=== PATIENT | male | born 1985 | race Caucasian/White ===

== ENCOUNTER 2023-06-05 05:39 | Inpatient (IN) | payer OTHER, SELFPAY ==
[2023-06-05] VITALS (24 sets, daily range): BP systolic 108–148; BP diastolic 61–78; PULSE 80–108; RESP 16–23; TEMP 36.6–39.2; O2SAT 92–99; BMI 27.9
--- NOTE | 2023-06-05 05:53 | ED.GENADULT ---
HPI - General Adult General Chief complaint: Skin/Abscess/Foreign Body Stated complaint: fever, possible infection Time Seen by Provider: 06/05/23 05:43 History of Present Illness HPI narrative: CC: Right Finger Redness/ Swelling pt. thinks he might have infection in right ring finger. denies injury. 37-year-old man presenting to the emergency department with complaint of right ring finger pain in particular. Started to have some pain after supper last night and has continued overnight. He has felt alternating hot with chills and has been treating with ibuprofen acetaminophen. Measured a fever to 101. Underlying history of eczema that the maybe just has dry skin was irritated. Otherwise does not recall any trauma to the hand or finger. Did end up with some dry heaves overnight as well. Related Data Home Medications Medication Instructions Recorded Confirmed No Known Home Medications 06/05/23 06/05/23 Allergies Allergy/AdvReac Type Severity Reaction Status Date / Time amoxicillin Allergy Severe Throat Verified 06/05/23 05:52 Swelling Review of Systems Status of ROS: Reports: 6 or more systems reviewed and unremarkable except as noted in History and below [facility] Medical History (Updated 06/05/23 @ 08:48 by Juan Jose Otero MD) Migraines ?G43.909 - Migraine, unspecified, not intractable, without status migrainosus (ICD-10) Surgical History S/P vasectomy ?Z98.52 - Vasectomy status (ICD-10) History of wisdom tooth extraction ?K08.409 - Partial loss of teeth, unspecified cause, unspecified class (ICD-10) Family History Maternal Grandfather TIA (transient ischemic attack) Maternal Grandmother Stroke Paternal Grandmother Scarlet fever Paternal Grandfather Cancer Social History Narrative: 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 . 4 children. Exercises formally, 4 to 5 days a week. Non-smoker. Alcohol 1/2 servings per week. No illicit drug use. Smoking Status: Never smoker Second hand tobacco smoke exposure: No How often do you have a drink containing alcohol: never How often do you have six or more drinks on one occasion: Never AUDIT-C Alcohol total score: 0 Non-prescribed substance use: denies use Exam Narrative: Exam Narrative: Pleasant. Seems uncomfortable. Favoring right hand and 4th finger of that hand held slightly flexed. Skin is warm and dry. Breathing easily. Lungs appear to be clear. Heart in a regular rate and rhythm. Examination of hand in question does show generally Ruff dry skin. There is blotchy erythema over the dorsum of the hand spreading into the 3rd finger in particular but main finger of involvement clearly is the right 4th finger which is tense and warm and mildly erythematous. I do not see any area where there would be discrete abscess or injury though there may be a nidus at the proximal radial side palmar surface of the finger. Faint erythema does extend over the dorsum of the hand to the wrist. Looks to have a little lymphangitic spread beyond that as well. Generally sore to palpation over the 4th finger; none of the other fingers are particularly tender. He allows for passive flexion of the finger though against resistance or with active flexion certainly causes much more pain. Const: Vital Signs, click to edit/add: Vital Signs - 24 hr 06/05/23 05:49 Temperature 98.2 F Pulse Rate [Right Pulse Oximeter] 85 Respiratory Rate 18 Blood Pressure [Ri ght Upper Arm] 130/70 Pulse Oximetry 99 Oxygen Delivery Me thod Room Air Documenting provider has reviewed patient's vital signs: yes Course Vital Signs Vital signs: Initial Vital Signs Temperature 98.2 F 06/05/23 05:49 Temperature Source Temporal Artery Scan 06/05/23 05:49 Pulse Rate 85 06/05/23 05:49 Respiratory Rate 18 06/05/23 05:49 Blood Pressure 130/70 06/05/23 05:49 Blood Pressure Mean 90 06/05/23 05:49 Blood Pressure Position Sitting 06/05/23 05:49 Pulse Oximetry 99 06/05/23 05:49 Oxygen Delivery Method Room Air 06/05/23 05:49 Vital Signs Temperature 98.2 F 06/05/23 05:49 Pulse Rate 85 06/05/23 05:49 Respiratory Rate 18 06/05/23 05:49 Blood Pressure 130/70 06/05/23 05:49 Pulse Oximetry 99 06/05/23 05:49 Oxygen Delivery Method Room Air 06/05/23 05:49 Temperature 98.2 F 06/05/23 05:49 Pulse Rate 85 06/05/23 05:49 Respiratory Rate 18 06/05/23 05:49 Blood Pressure 130/70 06/05/23 05:49 Pulse Oximetry 99 06/05/23 05:49 Oxygen Delivery Method Room Air 06/05/23 05:49 Medications Administered Medications: Discontinued Medications Generic Name Dose Route Start Last Admin Trade Name Radha PRN Reason Stop Dose Admin Sodium Chloride 1,000 mls @ 1,000 mls/hr 06/05/23 06:18 06/05/23 07:16 0.9 % Sodium Chloride 1000 Ml IV 06/05/23 07:17 Infused .Q1H ONE Infusion Ceftriaxone Sodium 1 gm/ 100 mls @ 200 mls/hr 06/05/23 06:18 06/05/23 08:08 Sodium Chloride IVPB 06/05/23 06:19 Infused ONCE ONE Infusion Sodium Chloride 1,000 mls @ 1,000 mls/hr 06/05/23 06:20 06/05/23 06:33 0.9 % Sodium Chloride 1000 Ml IV 06/05/23 07:19 Not Given .Q1H ONE Ondansetron HCl 4 mg 06/05/23 06:18 06/05/23 06:32 Ondansetron 2 Mg/Ml Inj IVP 06/05/23 06:19 4 mg ONCE ONE Administration Medical Decision Making MDM Narrative Medical decision making narrative: Skin with less calor and induration than I might expect for basic cellulitis. This seems less cellulitis and more concerning for potential tenosynovitis. Without trauma, I do not think that imaging will be helpful. I suppose could be some sort of arthritis but this seems rather atypical. I would obtain baseline labs. IV fluids and initiate IV antibiotics. Initiating Rocephin after obtaining blood cultures. IV fluids. Zofran. Did have another episode of vomiting prior to getting this Zofran. White count returns at 19,000. CRP though of only 2.9. I was called back to bedside as he is feeling increasing tingling in his fingertip, more tender. Still well-perfused and generally tense and erythematous. Did contact Orthopedics discussed my concerns. Anticipating orthopedic consult and likely surgical intervention at this time. I would consider Mr. Stacy a good candidate for trial of anesthesia. Discussed admission also with hospitalist Lab Data Lab results reviewed: Yes I reviewed the patient's lab results Labs: Lab Results 06/05/23 06/05/23 Range/Units 06:19 06:26 WBC 18.99 H (4.50-11.00) K/uL RBC 5.67 (4.30-5.90) m/uL Hgb 17.0 (13.5-17.5) gm/dL Hct 50.3 (37.0-53.0) % MCV 89 (80-100) fL MCH 30 (26-34) pg MCHC 34 (32-36) gm/dL RDW Coeff of Tena 11.7 (11.5-15.5) % Plt Count 335 (140-440) K/uL Neut % (Auto) 86.1 H (42.0-72.0) % Lymph % (Auto) 4.3 L (20-44) % [place] % (Auto) 9.0 (0.0-11.0) % Eos % (Auto) 0.1 (0.0-7.0) % Baso % (Auto) 0.1 (0.0-3.0) % Neut # (Auto) 16.40 H (1.7-7.0) K/uL Lymph # (Auto) 0.80 L (0.90-2.90) K/uL [place] # (Auto) 1.70 H (0.00-0.90) K/UL Eos # (Auto) 0.00 (0.00-0.50) K/uL Baso # (Auto) 0.00 (0.00-0.30) K/uL Abs Immat Gran (auto) 0.10 (0.00-0.30) K/uL Imm/Tot Granulo (auto) 0.4 % Sodium 138 (135-149) mmol/L Potassium 4.3 (3.6-5.1) mmol/L Chloride 103 (96-114) mmol/L Carbon Dioxide 22 (20-32) mmol/L Anion Gap 13 (7-15) mEq/L BUN 18 (5-24) mg/dL Creatinine 1.2 (0.5-1.5) mg/dL Estimated Creat Clear 91.51 Estimated GFR 81 ml/min Glucose 129 H (60-115) mg/dL Lactate 1.1 (0.5-1.9) mmol/L Calcium 10.0 (8.4-10.6) mg/dL C-Reactive Protein 2.9 H (0.5-1.0) mg/dL Discharge Plan Discharge Clinical Impression: Eczema, Tenosynovitis Patient Disposition: Admitted As Observation
[2023-06-05] MEDS: ONDANSETRON 2 MG/ML inj 4 MG IVP ×3 (06:32→22:26)
[2023-06-05] MEDS: 0.9 % SODIUM CHLORIDE 1000 ml 1,000 ML IV (06:32)
[2023-06-05 06:38] LABS: Lactate* 1.1 mmol/L (0.5-1.9)
[2023-06-05 07:08] LABS: Basophils Percent Auto 0.1 % (0.0-3.0); Eosinophils Percent Auto 0.1 % (0.0-7.0); Hematocrit 50.3 % (37.0-53.0); Immature Granulocytes Pct Auto 0.4 %; Lymphocytes Percent Auto 4.3 % (20-44); Mean Corpuscular HGB Conc 34 gm/dL (32-36); Mean Corpuscular Hemoglobin 30 pg (26-34); Mean Corpuscular Volume 89 fL (80-100); Neutrophils Percent Auto 86.1 % (42.0-72.0); Platelet Count* 335 K/uL (140-440); RDW Coefficient of Variation % 11.7 % (11.5-15.5); Red Blood Count 5.67 m/uL (4.30-5.90); White Blood Count* 18.99 K/uL (4.50-11.00)
[2023-06-05] MEDS: cefTRIAXone 1 GM in 0.9 % SODIUM CHLORIDE Mini-bag 100 ML IVPB ×2 (07:14→12:48)
[2023-06-05 07:23] LABS: Slide Review Reflex No
[2023-06-05 07:24] LABS: Chloride* 103 mmol/L (96-114); Potassium* 4.3 mmol/L (3.6-5.1); Sodium* 138 mmol/L (135-149)
[2023-06-05 07:27] LABS: Creatinine* 1.2 mg/dL (0.5-1.5); Est. Creatinine Clearance* 91.51; Estimated Glomerular Filt Rate 81 ml/min
[2023-06-05 07:28] LABS: Anion Gap 13 mEq/L (7-15); Blood Urea Nitrogen* 18 mg/dL (5-24); Carbon Dioxide* 22 mmol/L (20-32); Glucose* 129 mg/dL (60-115)
[2023-06-05 07:31] LABS: C Reactive Protein* 2.9 mg/dL (0.5-1.0)
--- NOTE | 2023-06-05 09:10 | ED.NURSE ---
waiting for OR crew. is starting to have chills.
[2023-06-05] MEDS: PROMETHAZINE 25 MG/ML INJ 12.5 MG IVP (09:44)
[2023-06-05] MEDS: HYDROmorphone 0.5 mg/0.5 ml inj IVP ×3 (09:44→23:48)
[2023-06-05] MEDS: LACTATED RINGERS 1000 ML 1,000 ML 125 ML IV (10:17)
[2023-06-05] MEDS: BUPIVACAINE 0.5% 30 ML INJECTION (10:35)
[2023-06-05] MEDS: NEOMYCIN/BACITRACIN/POLYMYXIN B 1 APPLIC TOPICAL (11:00)
--- NOTE | 2023-06-05 11:14 | PM.ORCN ---
History of Present Illness HPI Date Seen: 06/05/23 Chief complaint: fever, possible infection Narrative: Gabriel is a pleasant 37-year-old male. He presented to the emergency department this morning on 06/05/2023. He reports his right ring finger has become swollen, red, painful, and difficulty with use. This is developed in the last 24 hours. Reportedly he has eczema which typically causes him to scratch even his palmar surface of his fingers and hand. He thinks he may have created a small cut. He put a Band-Aid on this. Overnight, the Band-Aid was excessively tight. He had to take it off. This prompted the visit to the ED as redness also progressed. He became febrile overnight with occasional shaking and chills. 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 . 4 children. Exercises formally, 4 to 5 days a week. Non-smoker. Alcohol 1/2 servings per week. No illicit drug use. Smoking Status: Never smoker Second hand tobacco smoke exposure: No How often do you have a drink containing alcohol: never How often do you have six or more drinks on one occasion: Never AUDIT-C Alcohol total score: 0 Non-prescribed substance use: denies use Meds Home Medications and Allergies Home Medications Medication Instructions Recorded Confirmed Type No Known Home Medications 06/05/23 06/05/23 History Allergies Allergy/AdvReac Type Severity Reaction Status Date / Time amoxicillin Allergy Severe Throat Verified 06/05/23 05:52 Swelling Ortho Exam Narrative Exam Narrative: Alert and oriented x3. No acute distress. Nonlabored breathing. His is with him today. Exam the right hand shows positive [place] signs including fusiform swelling of the right ring finger, rested flexed posture, pain with passive stretch, and erythema throughout the digit. The digit tip is pink, warm, brisk cap refill. Sensation intact to light touch in the radial and ulnar aspects distally. Mild erythema seen along some swelling over the dorsum of the hand as well. No significant erythema into the palm beyond the MCP joint region. Const Vital Signs, click to edit/add: Vital Signs - 24 hr 06/05/23 05:49 06/05/23 09:45 Temperature 98.2 F 99.0 F Pulse Rate [Right Pulse Oximeter] 85 Respiratory Rate 18 Blood Pressure [Right Upper Arm] 130/70 Pulse Oximetry 99 Oxygen Delivery Method Room Air Results Labs Labs: Laboratory Results - last 48 hr 06/05/23 06/05/23 06:19 06:26 WBC 18.99 H RBC 5.67 Hgb 17.0 Hct 50.3 MCV 89 MCH 30 MCHC 34 RDW Coeff of Tena 11.7 Plt Count 335 Neut % (Auto) 86.1 H Lymph % (Auto) 4.3 L [place] % (Auto) 9.0 Eos % (Auto) 0.1 Baso % (Auto) 0.1 Neut # (Auto) 16.40 H Lymph # (Auto) 0.80 L [place] # (Auto) 1.70 H Eos # (Auto) 0.00 Baso # (Auto) 0.00 Abs Immat Gran (auto) 0.10 Imm/Tot Granulo (auto) 0.4 Sodium 138 Potassium 4.3 Chloride 103 Carbon Dioxide 22 Anion Gap 13 BUN 18 Creatinine 1.2 Estimated Creat Clear 91.51 Estimated GFR 81 Glucose 129 H Lactate 1.1 Calcium 10.0 C-Reactive Protein 2.9 H Assessment and Plan Assessment and plan (1) Suppurative tenosynovitis of flexor tendon of right hand: Status: Acute Plan Examination is suspicious of pyogenic flexor tenosynovitis of the right ring finger. As such, and given the fact that he is started to have some erythema develop over the dorsum of the hand along with his fevers and rigors, I do think surgery is indicated. This would be for right ring finger incision and drainage. Deep incision and drainages its at the flexor tendon sheath. We discussed the risks, benefits, and alternatives. A below questions were answered. He and his state understanding. Indeed he would like to proceed with surgery. His last food/drink intake was 7:00 p.m. last evening. Following the surgery, anticipate IV antibiotics until cultures return at which time he can hopefully be switched to oral antibiotics.
--- NOTE | 2023-06-05 11:19 | PM.ORPRC ---
Procedure Note Date of procedure: 06/05/23 Procedure: PREOPERATIVE DIAGNOSIS: 1. Right ring finger pyogenic flexor tenosynovitis POSTOPERATIVE DIAGNOSIS: 1. Right ring finger pyogenic flexor tenosynovitis PROCEDURE: 1. Right ring finger pyogenic flexor tenosynovitis open incision and drainage SURGEON: Bhupendra Birmingham MD. INSTRUMENT/CONTROL TECHNICIAN: Pau Tejeda PA-C - Of note, an infertility medical assistant was critical for this case to aid in patient positioning, tissue retraction, limb manipulation/positioning, and closure. ANESTHESIA: General endotracheal anesthetic plus median nerve block at the carpal tunnel with a 50:50 mixture of 1% lidocaine with epinephrine and 0.5% bupivacaine plain (10 mL total) IMPLANTS: None TOURNIQUET: 18 minutes at 250 torr COMPLICATIONS: None evident INDICATIONS: The patient is a pleasant 37-year-old male who has developed a right ring finger swelling, redness, pain, and dysfunction over last 24 hours. He related to scratching the volar aspect of the digit due to his eczema and creating a small wound. He noticed overnight at the redness and swelling worsened along with development of fevers and rigors. Nonoperative management has been tried but unsuccessful. Given the failure of nonoperative management, and how this affects daily life, surgery was recommended. DESCRIPTION OF PROCEDURE: Following a thorough discussion of risks, benefits, and alternatives consent was obtained and the operative extremity was marked. The patient was brought to the operating room and placed supine on the operating table. No antibiotics were administered as he had received IV ceftriaxone in the emergency department approximately 1.5-2 hours prior to the surgery. Proper time-out was performed identifying proper patient, site, and procedure. The operative extremity was prepped and draped in the appropriate sterile fashion using ChloraPrep. Median nerve block at the carpal tunnel was performed. The limb was exsanguinated and the tourniquet inflated. A longitudinal incision was made overlying the MCP joint of the right ring finger volarly. Sharp incision through skin and blunt dissection through subcutaneous tissue allowed identification of the A1 justin and the flexor tendon sheath. A thorough irrigation normal saline was performed. A 10 mL syringe was utilized with a small cap to direct the flow of the fluid into the flexor tendon sheath. Thorough irrigation through this site was performed. Cultures were obtained just prior to the beginning of irrigation, of note. We then made a transverse incision through the distal digital crease and again found the flexor tendon sheath. The sheath was irrigated from this direction as well. A [place] was utilized to ensure that we mobilize the tissue in the flexor tendon sheath and irrigation could be completed accordingly. At this stage, the tourniquet was deflated and hemostasis achieved. Closure was performed with [4-O nylon]. Soft dressings were applied, a volar splint was applied to allow the ring finger to rest, and the patient was awoken/transferred to the recovery room in stable condition. PLAN: 1. Encourage elevation of the operative extremity. 2. IV antibiotics until cultures return and a p.o. antibiotic can be chosen. 3. Ibuprofen, acetaminophen and/or Percocet/oxycodone as needed for pain. 4. Monitor the wound and evaluate if repeat incision and drainage is needed.
--- NOTE | 2023-06-05 11:23 | W.ANESCHARGE ---
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
[2023-06-05] MEDS: METOCLOPRAMIDE HCL 5 MG/ML INJ 10 MG IVP (11:28)
[2023-06-05] MEDS: LACTATED RINGERS 1000 ML 1,000 ML 75 ML IV ×2 (12:05→22:30)
[2023-06-05] MEDS: ACETAMINOPHEN 325 MG TABLET 650 MG PO (15:05)
--- NOTE | 2023-06-05 18:36 | PC.NURSE ---
Shift note: Pt arrived to med/surg unit at 1155 this morning following surgery completed to fourth digit of R hand. Pt has received IV ABX per orders. He was noted to be febrile with temp as high as 102.6 this afternoon. PRN Tylenol administered with temp of 98.3 noted upon followup. Surgical incision to R hand noted to be covered with dressing and secured with JOVANNA wrap. Pt has been denying pain since surgery. He states he does have numbness/tingling to R hand though nerve block was administered for surgical procedure. CMS to R hand noted to be intact. SCDs worn to bilateral lower extremities. Marisa has been present at bedside most of shift. Pt noted to have mild nausea following surgery though this was effectively treated with PRN IV Zofran. Pt has voided 600 mL light virgilio urine since surgery. He ambulated to bathroom with SBA this afternoon. LS clear to all lobes bilaterally and bowel sounds active x 4 with last BM of 06/04/23 per pt report. Pt alert & oriented x 4 and able to make needs known. He has slept most of the shift and is pleasant when interacting with staff. Corporate Safety Director did let pt know pain medications available if he starts to experience pain. Pt noted to be slightly tachycardic at times since surgery with highest pulse of 106. Pulse decreased to 86 with last VS assessment at 1800. He has had no vomiting or c/o chest pain or shortness of breath noted.
[2023-06-05] MEDS: SENNOSIDES 1 TAB TABLET 2 TAB PO (20:26)
[2023-06-05] MEDS: OXYCODONE 5 MG TABLET PO (20:26)
[2023-06-06] VITALS (10 sets, daily range): BP systolic 111–129; BP diastolic 56–81; PULSE 62–85; RESP 16; TEMP 36.6–37.6; O2SAT 92–98
[2023-06-06] MEDS: OXYCODONE 5 MG TABLET PO ×2 (02:40→06:02)
[2023-06-06] MEDS: ACETAMINOPHEN 325 MG TABLET 650 MG PO (06:06)
--- NOTE | 2023-06-06 06:21 | PC.NURSE ---
Pt alert and oriented x3. Afebrile. Pt reports 6/10 throbbing pain in right 4th digit, pain managed with PRN medications, and Ice pack to hand. Pt's right 4th digit has <3 cap refill, pink in color, pt denies numbness and tingling. 4th digit dressing and Roberto wrap to hand is CDI. Pt reports headache 2/10, managed with PRN Tylenol. Pt SBA with IV pole, tolerating regular diet, and voiding. Pt slept intermittently throughout night.
[2023-06-06 08:16] LABS: Basophils Percent Auto 0.1 % (0.0-3.0); Eosinophils Percent Auto 0.2 % (0.0-7.0); Hematocrit 39.4 % (37.0-53.0); Hemoglobin* 12.9 gm/dL (13.5-17.5); Immature Granulocytes Pct Auto 0.2 %; Lymphocytes Percent Auto 7.6 % (20-44); Mean Corpuscular HGB Conc 33 gm/dL (32-36); Mean Corpuscular Hemoglobin 30 pg (26-34); Mean Corpuscular Volume 91 fL (80-100); Monocytes Percent Auto 7.9 % (0.0-11.0); Platelet Count* 214 K/uL (140-440); RDW Coefficient of Variation % 12.1 % (11.5-15.5); Red Blood Count 4.32 m/uL (4.30-5.90); White Blood Count* 14.39 K/uL (4.50-11.00)
--- NOTE | 2023-06-06 08:20 | P.ORPN_ITS ---
Subjective Subjective Time Seen by Provider: 07:45 Date Seen: 06/06/23 Principal diagnosis: Day 1 s/p rt ring finger pyogenic flexor tenosynovitis incision & drainage Interval history: Gabriel is day 1 s/p right ring finger pyogenic flexor tenosynovitis open incision and drainage. Gabriel is resting comfortably in bed this morning with his right hand/wrist elevated above his heart and utilizing ice. He complains of feeling feverish last night, but reports this has improved. Also complains of right ring finger throbbing pain and tightness. Denies numbness/tingling distally. Ortho Exam Narrative Exam Narrative: Patient is alert and oriented x3. No acute distress converses with nonlabored breathing. Right hand/wrist exam: Splint dressings were removed from the forearm and wrist for this exam. Dressings were left in place over the surgical wounds. Erythematous streaking over dorsal distal forearm has subsided. No erythema this morning. Able to wiggle fingers appropriately. ROM deferred. CMS intact with 2+ radial pulse. [place], warm digits with brisk capillary refill. Sensation confirmed distally over median, radial and ulnar nerve distributions. Splint is clean, dry and intact without signs of drainage. Const Vital Signs, click to edit/add: Vital Signs - 24 hr 06/05/23 09:45 06/05/23 11:15 06/05/23 11:20 Temperature 99.0 F 99.2 F Pulse Rate 107 H 106 H Pulse Rate [Left Pulse Oximeter] Respiratory Rate 21 23 Blood Pressure 129/66 115/61 Blood Pressure [Left Arm] Pulse Oximetry 94 98 Oxygen Delivery Method Room Air 06/05/23 11:25 06/05/23 11:30 06/05/23 11:35 Temperature Pulse Rate 101 H 104 H 102 H Pulse Rate [Left Pulse Oximeter] Respiratory Rate 20 21 20 Blood Pressure 115/64 115/70 114/64 Blood Pressure [Left Arm] Pulse Oximetry 96 98 98 Oxygen Delivery Method 06/05/23 11:40 06/05/23 11:45 06/05/23 12:00 Temperature 99.5 F 100.3 F H Pulse Rate 108 H 105 H 105 H Pulse Rate [Left Pulse Oximeter] Respiratory Rate 21 20 20 Blood Pressure 118/69 108/71 Blood Pressure [Left Arm] 140/77 H Pulse Oximetry 96 96 Oxygen Delivery Method Room Air Room Air 06/05/23 12:15 06/05/23 12:15 06/05/23 12:15 Temperature 100.3 F H 100.3 F H 100.3 F H Pulse Rate 106 H Pulse Rate [Left Pulse Oximeter] 106 H 106 H Respiratory Rate 18 18 18 Blood Pressure Blood Pressure [Left Arm] 133/67 133/67 133/67 Pulse Oximetry 97 97 Oxygen Delivery Method Room Air Room Air Room Air 06/05/23 12:30 06/05/23 12:45 06/05/23 13:00 Temperature 100.3 F H 100.4 F H 100.6 F H Pulse Rate Pulse Rate [Left Pulse Oximeter] 100 101 H 102 H Respiratory Rate 18 18 20 Blood Pressure Blood Pressure [Left Arm] 130/75 124/72 128/75 Pulse Oximetry 95 96 96 Oxygen Delivery Method Room Air Room Air Room Air 06/05/23 13:32 06/05/23 14:00 06/05/23 15:00 Temperature 100.6 F H 102.6 F H 101.5 F H Pulse Rate Pulse Rate [Left Pulse Oximeter] 105 H 104 H 99 Respiratory Rate 20 18 18 Blood Pressure Blood Pressure [Left Arm] 148/71 H 142/78 H 135/72 Pulse Oximetry 96 92 95 Oxygen Delivery Method Room Air Room Air Room Air 06/05/23 15:05 06/05/23 16:00 06/05/23 16:09 Temperature 101.5 F H 98.3 F 98.3 F Pulse Rate Pulse Rate [Left Pulse Oximeter] 104 H Respiratory Rate 18 Blood Pressure Blood Pressure [Left Arm] 127/65 Pulse Oximetry 92 Oxygen Delivery Method Room Air 06/05/23 17:00 06/05/23 18:00 06/05/23 20:30 Temperature 99.3 F 99.3 F 97.9 F Pulse Rate Pulse Rate [Left Pulse Oximeter] 98 86 94 Respiratory Rate 18 16 16 Blood Pressure Blood Pressure [Left Arm] 119/73 121/70 127/78 Pulse Oximetry 93 93 95 Oxygen Delivery Method Room Air Room Air Room Air 06/05/23 22:35 06/05/23 22:35 06/06/23 02:40 Temperature 98.9 F 98.6 F Pulse Rate Pulse Rate [Left Pulse Oximeter] 80 80 85 Respiratory Rate 16 16 16 Blood Pressure Blood Pressure [Left Arm] 117/74 129/77 Pulse Oximetry 92 92 Oxygen Delivery Method Room Air Room Air 06/06/23 07:55 Temperature 98.9 F Pulse Rate Pulse Rate [Left Pulse Oximeter] 85 Respiratory Rate 16 Blood Pressure Blood Pressure [Left Arm] 116/70 Pulse Oximetry 92 Oxygen Delivery Method Room Air Documenting provider has reviewed patient's vital signs: yes Assessment and Plan Assessment and plan (1) Suppurative tenosynovitis of flexor tendon of right hand: Status: Acute Plan PLAN: - Patient's fever has subsided. Temp of 98.9 degrees this morning; an im provement from 101.5 degrees yesterday evening. - Continue with IV antibiotics (vancomycin and ceftriaxone) as prescribed. - Regarding pain management, recommend acetaminophen, ibuprofen, oxycodone, hydromorphone PRN. In addition to elevation of the right hand/wrist above the heart and frequent icing. - Wound culture obtained in surgery yesterday is still pending. - Will continue to monitor WBC and CRP levels. Repeat CBC and CRP was ordered this morning. - Proximal erythematous streaking up the dorsal forearm has subsided. Will continue to monitor the wound to determine if repeat incision and drainage is necessary. - Patient's was not present during this visit. I instructed Gabriel and his to notify nursing/Orthopedics if they have any further questions or concerns today. I anticipate Gabriel will require an additional night stay in the hospital, pending his culture results and lab work. Once we receive these results, may consider a transition to oral antibiotics.
[2023-06-06] MEDS: cefTRIAXone 2 GM in 0.9 % SODIUM CHLORIDE Mini-bag 100 ML IVPB (08:30)
[2023-06-06 08:31] LABS: Slide Review Reflex Yes
[2023-06-06] MEDS: 0.9 % SODIUM CHLORIDE 250 ml IV (08:34)
[2023-06-06] MEDS: ONDANSETRON 2 MG/ML inj 4 MG IVP (09:00)
[2023-06-06 09:04] LABS: Slide Review Acceptable Review (Acceptable)
[2023-06-06] MEDS: IBUPROFEN 600 MG TABLET PO ×2 (09:04→18:08)
--- NOTE | 2023-06-06 10:20 | PC.NURSE ---
Pt seen by MD Jones this morning. Pain and nausea reviewed. Pt c/o nausea this morning likely caused by AM dose of Oxycodone as well as dose of Dilaudid utilized overnight. Senior Cytogenetic Technologist applied Q-easy aromatherapy patch to help reduce nausea though he stated aroma was too strong and removed patch. Senior Cytogenetic Technologist also administered PRN Zofran at 0900. Pt resting at this time-only able to eat a few bites of breakfast provided.
--- NOTE | 2023-06-06 10:33 | CRLHL7_ITS ---
For Patients: As a result of the Cures Act, medical imaging exams and procedure reports are released immediately into your electronic medical record. You may view this report before your referring provider. If you have questions, please contact your health care provider. INDICATION: Swelling and redness. FINDINGS: Right jugular vein patent and compressible with normal color and spectral Doppler appearance. No filling defect in the right innominate or subclavian vein with normal color and spectral Doppler appearance. Axillary, brachial, basilic and cephalic veins patent and compressible. IMPRESSION: No right upper extremity DVT. Dictated by Rohith Whittaker MD @ 06/06/2023 12:21:16 PM (Electronically Signed)
[2023-06-06] MEDS: PROCHLORPERAZINE 10 MG TABLET PO (10:48)
--- NOTE | 2023-06-06 11:04 | PC.NURSE ---
Addendum entered by Rohini Pride RN 06/06/23 19:24: Clarification: Incorrect documentation regarding redness as redness was noted proximally to JOVANNA wrap Addendum entered by Rohini Pride RN 06/06/23 11:48: Clarification- compression wrap had been applied by lab after blood draw Original Note: MD Jones saw pt and noted slight redness to R arm located distally to JOVANNA wrap. Pt stated he had had a blood draw completed to this area on 06/05/23 and was noted to have compression wrap near this area this morning which was removed. Redness outlined and ultrasound is being completed. MD Jones requested blood glucose check which is noted to be 92.
--- NOTE | 2023-06-06 11:14 | PC.NURSE ---
MD Jones order Hgb A1C- leader writer notified lab and requested to run lab as add on to sample obtained this morning.
[2023-06-06 11:23] LABS: Hemoglobin A1C* 5.5 % (0-5.6)
[2023-06-06] MEDS: LORazepam 2 MG/ML inj 0.5 MG IVP ×2 (12:18→19:24)
--- NOTE | 2023-06-06 12:42 | PC.NURSE ---
Venous doppler impression states No DVT to R upper extremity. Design Printing Machine Setter updated pt and Marisa.
--- NOTE | 2023-06-06 14:16 | PC.NURSE ---
Pt has had 5/10 pain to R hand this shift though reports because of the type of pain pain medications are only somewhat effective. Staff have provided ice, encouraged elevation and encouraged rest as well. aware. PRN Ibuprofen this morning for pain management and to help reduce swelling to fingers of R hand due to surgery. CMS intact to R hand with JOVANNA wrap in place. Dr. Kirkland's PA saw patient this morning and provided new cotton wrapping. Pt noted to have nausea this shift as he reports he took Oxycodone on empty stomach this morning after 0600. Staff educated pt regarding importance of taking pain medications with food. He also had one episode of vomiting before lunch today. Pt has had family at bedside today including Marisa. SCDs worn to bilateral lower extremities. Pt has voided once this shift- staff educated pt to void into urinal so that output can be correctly measured. LS remain clear to all lobes bilaterally and bowel sounds remain active x 4. Pt was able to eat approximately 50% of lunch after nausea/vomiting was treated with PRN Lorazepam. Staff continue to encourage food and fluids as tolerated. MD Crockett seeing pt at this time and is aware of redness/swelling noted to R arm this morning. Pt up independently in room. He continues on LR at 75 mL/hr. Pt remains alert & oriented x 4 and able to make needs known. Last temp of 99.6 noted before lunch- pt continues on IV antibiotics per orders.
[2023-06-06] MEDS: LACTATED RINGERS 1000 ML 1,000 ML 75 ML IV (16:45)
--- NOTE | 2023-06-06 17:23 | P.IMCN_ITS ---
Date of Consult Patient: [facility] Patient Consult date: 06/06/23 Requesting Physician: Orthopedics Primary Care Provider: Yvette Cooley APRN, RESIDENTIAL TREATMENT COUNSELOR Consult Narrative Reason for consult: Tenosynovitis Narrative: Farhat Stacy is a 37 year old male Who presented through the emergency department for rapid onset of painful swollen right 4th finger, fever, chills, and vomiting. He was diagnosis with tenosynovitis and was taken to the OR last night for open incision and drainage. Blood cultures and wound culture are pending. He was admitted to the hospital and started on IV ceftriaxone and vancomycin. Today he remains nauseous and I am consulted for medical management of tenosynovitis as well as symptom management. When I saw Gabriel this morning, his , Marisa, was there with him and he was very sleepy and queasy. He reported a tingling constant pain his finger that did not seem to be improved at all with oxycodone. He also noted that ondansetron was not helping with nausea. His gave the rest of the history and he slept through most of our conversation. His was also concerned that there was now redness that extended beyond the wraps on the lower right arm and this redness extended up his arm past his elbow she said that was not there the night before. I went back and saw him in the early afternoon and he perked up dramatically and was overall feeling much improved. Review of Systems Status of ROS: Reports: 10 or more systems reviewed and unremarkable except as noted in History and below GI: Reports: constipation PFSH PFSH Medical History (Updated 06/06/23 @ 17:32 by Scarlet Jones MD) Eczema ?L30.9 - Dermatitis, unspecified (ICD-10) Migraine with aura ?G43.109 - Migraine with aura, not intractable, without status migrainosus (ICD-10) Migraines ?G43.909 - Migraine, unspecified, not intractable, without status migrainosus (ICD-10) Surgical History (Updated 06/06/23 @ 17:32 by Scarlet Jones MD) S/P vasectomy ?Z98.52 - Vasectomy status (ICD-10) History of wisdom tooth extraction ?K08.409 - Partial loss of teeth, unspecified cause, unspecified class (ICD- 10) Family History Maternal Grandfather TIA (transient ischemic attack) Maternal Grandmother Stroke Paternal Grandmother Scarlet fever Paternal Grandfather Cancer Social History Narrative: 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 . 4 children. Exercises formally, 4 to 5 days a week. Non-smoker. Alcohol 1/2 servings per week. No illicit drug use. Smoking Status: Never smoker Second hand tobacco smoke exposure: No How often do you have a drink containing alcohol: never How often do you have six or more drinks on one occasion: Never AUDIT-C Alcohol total score: 0 Non-prescribed substance use: denies use Meds Home Medications and Allergies Home Medications Medication Instructions Recorded Confirmed Type No Known Home Medications 06/05/23 06/05/23 History Allergies Allergy/AdvReac Type Severity Reaction Status Date / Time amoxicillin Allergy Severe Throat Verified 06/05/23 05:52 Swelling Exam Narrative: Exam Narrative: General: Appears ill. Sleeping, arouses to name, answers questions appropriately. Oriented x3. HEENT: Normocephalic atraumatic, pupils equally round and reactive to light and accommodation. Oropharynx clear. Mucous membranes are moist. No cervical lymphadenopathy, thyromegaly or carotid bruits. No JVD. Cardiovascular: Regular rate and rhythm. No murmurs, gallops, or rubs. Chest: No increased work of breathing. Clear to auscultation bilaterally. No crackles or wheezes. Abdomen: Bowel sounds present. Soft, nondistended, nontender. No hepatosplenomegaly or masses. Extremities: Right forearm and hand are in a Roberto wrap cast. Induration in a linear fashion over the proximal anterolateral forearm extending out from under the bandages and up past his elbow approximately 3 in. This was outlined with a marker when I saw him at 9:34 a.m.. No axillary lymphadenopathy. No lower extremity edema, no cyanosis or clubbing. Skin: No jaundice, no pallor, as above, otherwise no rashes. Neuro: Grossly intact. No focal deficits. Const: Vital Signs, click to edit/add: Vital Signs - 24 hr 06/05/23 18:00 06/05/23 20:30 06/05/23 22:35 Temperature 99.3 F 97.9 F Pulse Rate [Left P ulse Oximeter] 86 94 80 Respiratory Rate 16 16 16 Blood Pressure [Le ft Arm] 121/70 127/78 Pulse Oximetry 93 95 Oxygen Delivery Me thod Room Air Room Air 06/05/23 22:35 06/06/23 02:40 06/06/23 07:55 Temperature 98.9 F 98.6 F 98.9 F Pulse Rate [Left P ulse Oximeter] 80 85 85 Respiratory Rate 16 16 16 Blood Pressure [Le ft Arm] 117/74 129/77 116/70 Pulse Oximetry 92 92 92 Oxygen Delivery Me thod Room Air Room Air Room Air 06/06/23 11:00 06/06/23 15:00 06/06/23 15:00 Temperature 99.6 F 98.1 F Pulse Rate [Left P ulse Oximeter] 78 79 Respiratory Rate 16 16 Blood Pressure [Le ft Arm] 125/81 117/56 L Pulse Oximetry 93 96 96 Oxygen Delivery Me thod Room Air Room Air Labs Labs: Short CBC 06/06/23 Range/Units 07:58 WBC 14.39 H (4.50-11.00) K/uL Hgb 12.9 L (13.5-17.5) gm/dL Hct 39.4 (37.0-53.0) % Plt Count 214 (140-440) K/uL Ordering Physician: Scarlet Jones M.D. Date of Service: 06/06/23 Procedure(s): US venous UE RT Accession Number(s): [id number] cc: Yvette FLOWERS CNP; Scarlet Jones M.D.~ For Patients: As a result of the Century Cures Act, medical imaging exams and procedure reports are released immediately into your electronic medical record. You may view this report before your referring provider. If you have questions, please contact your health care provider. INDICATION: Swelling and redness. FINDINGS: Right jugular vein patent and compressible with normal color and spectral Doppler appearance. No filling defect in the right innominate or subclavian vein with normal color and spectral Doppler appearance. Axillary, brachial, basilic and cephalic veins patent and compressible. IMPRESSION: No right upper extremity DVT. Dictated by Rohith Whittaker MD @ 06/06/2023 12:21:16 PM (Electronically Signed) Assessment and Plan Assessment and plan (1) Suppurative tenosynovitis of flexor tendon of right hand: Status: Acute (2) Tenosynovitis: Status: Acute Plan 37-year-old male with right 4th finger tenosynovitis that was treated surgically with incision and drainage yesterday as well as having started to ceftriaxone and vancomycin postoperatively. Cultures are pending. I recommend in-hospital treatment with IV antibiotics until cultures have resulted at which time the antibiotic can be tailored for outpatient treatment. Patient has had extension of induration of his right arm since surgery which I have marked today. He has been on antibiotics for just less than 24 hours and when I went back later in the day today he did have some lessening of the induration that I marked earlier in the day. Continue current antibiotics and to monitor this induration. I checked a right upper quadrant ultrasound looking for DVT because of the swelling and induration and is negative. Also patient is having significant nausea which may be related to SIRS and/or attic medications. In addition to ondansetron p.r.n. I have ordered Compazine and I have ordered Ativan p.r.n. for pain augmentation and nausea. Monitor on continuous pulse oximetry while he is getting benzodiazepines plus narcotics. Constipation he is on senna twice a day and I have added p.r.n. MiraLax. Due to infection and nausea I have checked a hemoglobin A1c which is within normal limits. Thank you for the consult and I will follow along with you.
[2023-06-06] MEDS: SENNOSIDES 1 TAB TABLET 2 TAB PO (18:07)
[2023-06-07] VITALS (9 sets, daily range): BP systolic 107–147; BP diastolic 57–93; PULSE 58–86; RESP 16–20; TEMP 36.4–37; O2SAT 94–97
--- NOTE | 2023-06-07 04:21 | PC.NURSE ---
Pt rested well this night. Afebrile. No N/V. Pain controlled. Up IND and voiding.
[2023-06-07] MEDS: SENNOSIDES 1 TAB TABLET 2 TAB PO (08:17)
[2023-06-07] MEDS: IBUPROFEN 600 MG TABLET PO ×2 (08:17→17:20)
[2023-06-07] MEDS: cefTRIAXone 2 GM in 0.9 % SODIUM CHLORIDE Mini-bag 100 ML IVPB (08:19)
[2023-06-07] MEDS: 0.9 % SODIUM CHLORIDE 250 ml IV (08:20)
--- NOTE | 2023-06-07 08:44 | PM.ORPN ---
Subjective Subjective Time Seen by Provider: 07:30 Date Seen: 06/07/23 Principal diagnosis: Day 2 s/p rt ring finger pyogenic flexor tenosynovitis incision & drainage Interval history: Gabriel is day 2 s/p right ring finger pyogenic flexor tenosynovitis open incision and drainage. Gabriel is resting in bed this morning with his right hand/wrist elevated above his head. He continues to c/o right ring finger throbbing pain and tightness. Admits to tingling and mild numbness in this digit. Denies fever/chills last night. Patient reports he slept well last night. Patient's , Marisa, was present during our conversation. Fever has resolved; temperature this morning 98 degrees. Erythematous streaking over medial elbow/forearm has improved. Ortho Exam Narrative Exam Narrative: Exam Narrative: Patient is alert and oriented x3. No acute distress converses with nonlabored breathing. Volar splint was removed during this visit for a wound check. Right hand/wrist exam: Diffuse swelling, pain and tenderness within the right ring finger. Slightly flexed posturing of this digit. Surgical wounds remain closed with nylon sutures. No purulent drainage. Mild-moderate diffuse erythema throughout distal 2/3 of this digit. Erythematous streaking (marked with a skin marker) over medial elbow and forearm has resolved. Sensation confirmed distally, although Gabriel complains of tingling in tip of right ring finger. CMS intact with 2+ radial pulse. Downs, warm digits with brisk capillary refill. Sensation confirmed distally over median, radial and ulnar nerve distributions. Splint is clean, dry and intact without signs of drainage. Const Vital Signs, click to edit/add: Vital Signs - 24 hr 06/06/23 11:00 06/06/23 15:00 06/06/23 15:00 Temperature 99.6 F 98.1 F Pulse Rate [Left Pulse Oximeter] 78 79 Respiratory Rate 16 16 Blood Pressure [Left Arm] 125/81 117/56 L Pulse Oximetry 93 96 96 Oxygen Delivery Method Room Air Room Air 06/06/23 19:15 06/06/23 19:49 06/06/23 22:38 Temperature 98.7 F 98.7 F Pulse Rate [Left Pulse Oximeter] 77 Respiratory Rate 16 Blood Pressure [Left Arm] 119/73 Pulse Oximetry 98 98 Oxygen Delivery Method Room Air 06/06/23 22:39 06/06/23 23:25 06/06/23 23:27 Temperature 97.9 F 97.9 F Pulse Rate [Left Pulse Oximeter] 77 62 62 Respiratory Rate 16 16 16 Blood Pressure [Left Arm] 111/72 111/72 Pulse Oximetry 95 95 Oxygen Delivery Method Room Air Room Air 06/07/23 02:33 Temperature 98 F Pulse Rate [Left Pulse Oximeter] 66 Respiratory Rate 16 Blood Pressure [Left Arm] 119/57 L Pulse Oximetry 94 Oxygen Delivery Method Room Air Assessment and Plan Assessment and plan (1) Suppurative tenosynovitis of flexor tendon of right hand: Problem details: Day 2 s/p rt ring finger pyogenic flexor tenosynovitis incision & drainage Status: Acute Plan PLAN: Based on physical exam findings listed above, Gabriel may require another incision and drainage. His erythematous streaking has improved, which is promising and his fever has resolved, however he still has diffuse swelling, pain along flexor tendon and diffuse erythema in this digit. Wound cultures are still pending. Repeat CBC and CRP ordered this morning. WBC has decreased (18.9 to 14.3) and CRP is trending up (2.9 to 14). Images of his wounds and diffuse swelling were securely sent to Dr. [place] for further evaluation and his recommendation. A new, clean volar splint was applied. In the meantime, continue with IV antibiotics (vancomycin and ceftriaxone) as prescribed. Regarding pain management, recommend acetaminophen, ibuprofen, oxycodone, hydromorphone PRN. In addition to elevation of the right hand/wrist above the heart and frequent icing. All questions from Gabriel and his were answered.
[2023-06-07] MEDS: hydrOXYzine pamoate 25 MG CAPSULE PO ×2 (08:47→17:20)
[2023-06-07 09:18] LABS: Basophils Absolute Auto 0.03 K/uL (0.00-0.30); Basophils Percent Auto 0.3 % (0.0-3.0); Eosinophils Absolute Auto 0.19 K/uL (0.00-0.50); Eosinophils Percent Auto 2.1 % (0.0-7.0); Hematocrit 39.3 % (37.0-53.0); Hemoglobin* 12.9 gm/dL (13.5-17.5); Immature Granulocytes Abs Auto 0.01 K/uL (0.00-0.30); Immature Granulocytes Pct Auto 0.1 %; Lymphocytes Percent Auto 11.3 % (20-44); Mean Corpuscular HGB Conc 33 gm/dL (32-36); Mean Corpuscular Hemoglobin 30 pg (26-34); Mean Corpuscular Volume 90 fL (80-100); Monocytes Percent Auto 8.1 % (0.0-11.0); Neutrophils Percent Auto 78.1 % (42.0-72.0); Platelet Count* 255 K/uL (140-440); RDW Coefficient of Variation % 11.8 % (11.5-15.5); Red Blood Count 4.35 m/uL (4.30-5.90)
[2023-06-07 09:21] LABS: Slide Review Reflex No
[2023-06-07 09:43] LABS: C Reactive Protein* 6.9 mg/dL (0.5-1.0)
--- NOTE | 2023-06-07 13:35 | PM.ORPN ---
Subjective Subjective Date Seen: 06/07/23 Principal diagnosis: Day 2 s/p rt ring finger pyogenic flexor tenosynovitis incision & drainage Interval history: Overall, he notes no more fevers. No more chills. No or rigors. He notes the finger at the PIP joint is feeling better, although still mildly swollen. It is now somewhat painful at the finger tip. Previously was noted to have some erythema into the medial elbow, and arm region. This is no longer the case. Ortho Exam Narrative Exam Narrative: He is alert and oriented. Cooperative. Interactive. Right upper extremity exam upon removal of the splint shows purple marker at the medial right arm and medial elbow/proximal forearm region. There is no surrounding erythema in this region if there previously was. No erythema on the dorsum of the hand. Generalized swelling about the hand and fingers is still noted. However, skin wrinkles are now visible at the ring finger PIP joint volarly. He is minimally tender palpation volar PIP joint. He is moderately tender over the distal phalanx region. Minimal pain with passive stretch until 1 extends beyond neutral. He is able to actively flex the digit although with some discomfort. Lacks a full composite fist yet. Digit tip is pink, warm, brisk capillary refill. Mildly tender volar MCP joint of the small finger but minimally into the palm itself. Const Vital Signs, click to edit/add: Vital Signs - 24 hr 06/06/23 15:00 06/06/23 15:00 06/06/23 19:15 Temperature 98.1 F 98.7 F Pulse Rate [Left Pulse Oximeter] 79 77 Respiratory Rate 16 16 Blood Pressure [Left Arm] 117/56 L 119/73 Pulse Oximetry 96 96 98 Oxygen Delivery Method Room Air Room Air 06/06/23 19:49 06/06/23 22:38 06/06/23 22:39 Temperature 98.7 F Pulse Rate [Left Pulse Oximeter] 77 Respiratory Rate 16 Blood Pressure [Left Arm] Pulse Oximetry 98 Oxygen Delivery Method 06/06/23 23:25 06/06/23 23:27 06/07/23 02:33 Temperature 97.9 F 97.9 F 98 F Pulse Rate [Left Pulse Oximeter] 62 62 66 Respiratory Rate 16 16 16 Blood Pressure [Left Arm] 111/72 111/72 119/57 L Pulse Oximetry 95 95 94 Oxygen Delivery Method Room Air Room Air Room Air 06/07/23 07:00 06/07/23 07:00 06/07/23 07:00 Temperature 97.6 F Pulse Rate [Left Pulse Oximeter] 68 68 Respiratory Rate 18 18 Blood Pressure [Left Arm] 130/80 Pulse Oximetry 97 97 Oxygen Delivery Method Room Air 06/07/23 11:00 Temperature Pulse Rate [Left Pulse Oximeter] 77 Respiratory Rate 20 Blood Pressure [Left Arm] 147/93 H Pulse Oximetry 97 Oxygen Delivery Method Room Air Assessment and Plan Assessment and plan (1) Suppurative tenosynovitis of flexor tendon of right hand: Problem details: Day 2 s/p rt ring finger pyogenic flexor tenosynovitis incision & drainage Status: Acute Plan I do think the generalized pyogenic flexor tenosynovitis of this right ring finger is generally improving. He denies some skin wrinkles around the PIP joint and is no longer tender in this region. However, he remains tender with some swelling around the distal phalanx itself. He notes some numbness as well subjectively. The antibiotics now appear to be having some positive affect along with the postsurgical timing. I had a good discussion with him. The incisions look healthy. Ultimately, I think it reasonable to stay the watchful waiting course. We will continue IV antibiotics until cultures return. Then likely transition to oral antibiotics. I have asked our hospitalist team to provide some insight into antibiotic choice and appreciate their consultation/help. We will re-splint is wound later today. Encouraged him to elevate. We will continue to monitor.
--- NOTE | 2023-06-07 15:14 | P.IMPN_ITS ---
Progress Note: A&P Assessment and plan (1) Suppurative tenosynovitis of flexor tendon of right hand: Problem details: Day 2 s/p rt ring finger pyogenic flexor tenosynovitis incision & drainage - Interval improvement since yesterday. Continue ceftriaxone and vancomycin and await cultures. Status: Acute (2) Headache: Problem details: Has h/o migraine headache. Patient is going to restart creatine supplements today and try ibuprofen for headache. Status: Acute (3) Migraine with aura: Status: Acute (4) Constipation: Problem details: Continue senna. Miralax prn. I asked the patient to take a dose of that today. Status: Acute Plan Nausea and vomiting have resolved. Subjective Time Seen by Provider: 07:20 Date Seen: 06/07/23 Interval history: Gabriel complains of headache and feeling sleepy/tired this morning. He says he is not sure if it is a migraine headache. His last migraine AMIN was about a year ago; he has not had one since taking creatine, and he hasn't taken creatine for the last 2 days due to nausea. His pain is similar to yesterday. He is no longer nauseous and was able to eat dinner last night. No fever in the last 24 hours. Exam Narrative: Exam Narrative: General: No acute distress. Awake, alert, oriented. Sitting up in bed holding his head. No pallor. No jaundice. Oropharynx: Clear. Mucous membranes moist. Cardiovascular: Regular rate and rhythm. No murmurs, gallops, or rubs. Respiratory: Clear to auscultation bilaterally. No wheezes or crackles. Abdomen: Bowel sounds present. Soft, nondistended, nontender. Extremities: When I saw him his right forearm was still in the Roberto wrapped cast. The induration that I marked yesterday has lessened significantly. Later in the morning Pau from Orthopedics showed me the picture she had taken after unwrapping his arm. Looking at those pictures I note that he has no erythema or drainage around the incision sites, but does have a markedly edematous 4th finger with mild to moderate erythema yet. Const: Vital Signs, click to edit/add: Vital Signs - 24 hr 06/06/23 19:15 06/06/23 19:49 06/06/23 22:38 Temperature 98.7 F 98.7 F Pulse Rate [Left P ulse Oximeter] 77 Respiratory Rate 16 Blood Pressure [Le ft Arm] 119/73 Pulse Oximetry 98 98 Oxygen Delivery Me thod Room Air 06/06/23 22:39 06/06/23 23:25 06/06/23 23:27 Temperature 97.9 F 97.9 F Pulse Rate [Left P ulse Oximeter] 77 62 62 Respiratory Rate 16 16 16 Blood Pressure [Le ft Arm] 111/72 111/72 Pulse Oximetry 95 95 Oxygen Delivery Il thod Room Air Room Air 06/07/23 02:33 06/07/23 07:00 06/07/23 07:00 Temperature 98 F 97.6 F Pulse Rate [Left P ulse Oximeter] 66 68 Respiratory Rate 16 18 Blood Pressure [Le ft Arm] 119/57 L 130/80 Pulse Oximetry 94 97 97 [facility] Room Air 06/07/23 07:00 06/07/23 11:00 Temperature Pulse Rate [Left P ulse Oximeter] 68 77 Respiratory Rate 18 20 Blood Pressure [Le ft Arm] 147/93 H Pulse Oximetry 97 Oxygen Delivery Il thod Room Air Labs Labs: Laboratory Results - last 24 hr 06/07/23 09:12 WBC 8.90 RBC 4.35 Hgb 12.9 L Hct 39.3 MCV 90 MCH 30 MCHC 33 RDW Coeff of Tena 11.8 Plt Count 255 Neut % (Auto) 78.1 H Lymph % (Auto) 11.3 L Turner % (Auto) 8.1 Eos % (Auto) 2.1 Baso % (Auto) 0.3 Neut # (Auto) 7.00 Lymph # (Auto) 1.00 Turner # (Auto) 0.70 Eos # (Auto) 0.19 Baso # (Auto) 0.03 Abs Immat Gran (auto) 0.01 Imm/Tot Granulo (auto) 0.1 C-Reactive Protein 6.9 H
--- NOTE | 2023-06-07 17:10 | PC.NURSE ---
End of Shift Note: Patient started out the day with some nausea and pain which he received ibuprofen and vistaril. He then took a nap when he awoke states he felt a lot better. He took a shower today. His dad was here and visited along with his and kids. He has tolerated his IV antibiotics today after getting a new IV site. Will continue to monitor.
[2023-06-07] MEDS: LORazepam 2 MG/ML inj 0.5 MG IVP (20:46)
[2023-06-07] MEDS: ACETAMINOPHEN 325 MG TABLET 650 MG PO (20:46)
[2023-06-08] VITALS (8 sets, daily range): BP systolic 109–144; BP diastolic 68–94; PULSE 55–77; RESP 16–20; TEMP 36.4–37.2; O2SAT 94–97
--- NOTE | 2023-06-08 06:18 | PC.NURSE ---
Pt rested well this night. Pain controlled. Pt up IND and voiding. Pt had BM during the day. Afbrile.
--- NOTE | 2023-06-08 08:04 | CRLHL7_ITS ---
For Patients: As a result of the Cures Act, medical imaging exams and procedure reports are released immediately into your electronic medical record. You may view this report before your referring provider. If you have questions, please contact your health care provider. INDICATION: Dyspnea COMPARISON: None TECHNIQUE: PA and lateral views of the chest were acquired FINDINGS: TUBES AND LINES: None. HEART AND MEDIASTINUM: The heart size is normal. The mediastinal contour appears normal for patient age. LUNGS AND PLEURAL SPACES: The lungs appear normal.The pleural spaces are unremarkable. OSSEOUS STRUCTURES: Age-appropriate appearance. No acute focal finding. IMPRESSION: No evidence of active pulmonary disease. Dictated by Reed Concepcion MD @ 06/08/2023 8:54:48 AM (Electronically Signed)
[2023-06-08] MEDS: cefTRIAXone 2 GM in 0.9 % SODIUM CHLORIDE Mini-bag 100 ML IVPB (08:53)
[2023-06-08] MEDS: SENNOSIDES 1 TAB TABLET 2 TAB PO ×2 (08:53→21:18)
[2023-06-08] MEDS: 0.9 % SODIUM CHLORIDE 250 ml IV (08:53)
[2023-06-08] MEDS: IBUPROFEN 600 MG TABLET PO ×2 (08:54→16:45)
[2023-06-08 09:15] LABS: Basophils Absolute Auto 0.06 K/uL (0.00-0.30); Basophils Percent Auto 1.1 % (0.0-3.0); Eosinophils Absolute Auto 0.28 K/uL (0.00-0.50); Eosinophils Percent Auto 5.1 % (0.0-7.0); Hematocrit 38.9 % (37.0-53.0); Immature Granulocytes Abs Auto 0.03 K/uL (0.00-0.30); Immature Granulocytes Pct Auto 0.5 %; Lymphocytes Absolute Auto 1.19 K/uL (0.90-2.90); Lymphocytes Percent Auto 21.8 % (20-44); Mean Corpuscular HGB Conc 33 gm/dL (32-36); Mean Corpuscular Hemoglobin 30 pg (26-34); Mean Corpuscular Volume 90 fL (80-100); Neutrophils Absolute Auto 3.31 K/uL (1.7-7.0); Neutrophils Percent Auto 60.5 % (42.0-72.0); Platelet Count* 295 K/uL (140-440); Red Blood Count 4.32 m/uL (4.30-5.90); Slide Review Reflex No; White Blood Count* 5.47 K/uL (4.50-11.00)
[2023-06-08 09:28] LABS: Chloride* 109 mmol/L (96-114); Sodium* 140 mmol/L (135-149)
[2023-06-08 09:29] LABS: Potassium* 3.9 mmol/L (3.6-5.1)
[2023-06-08 09:31] LABS: Anion Gap 7 mEq/L (7-15); Blood Urea Nitrogen* 11 mg/dL (5-24); Carbon Dioxide* 24 mmol/L (20-32); Creatinine* 0.9 mg/dL (0.5-1.5); Est. Creatinine Clearance* 122.01; Estimated Glomerular Filt Rate 114 ml/min
[2023-06-08 09:32] LABS: Calcium* 8.9 mg/dL (8.4-10.6); Glucose* 113 mg/dL (60-115)
[2023-06-08 09:46] LABS: Troponin I* < 0.01 ng/mL (0.01-0.04)
--- NOTE | 2023-06-08 10:14 | PM.IMPN1 ---
Progress Note: A&P Assessment and plan (1) Suppurative tenosynovitis of flexor tendon of right hand: Problem details: s/p rt ring finger pyogenic flexor tenosynovitis incision & drainage 06/05/23 - Interval improvement. - I spoke with Dr. Shelton from [facility] today regarding the group a strep that grew out in wound cultures, noting that blood cultures were both negative so far. He agreed that we could. Vancomycin and transition over to Ancef for 24 hours and then do Keflex as an outpatient if he does well tomorrow. I am stopping vancomycin today. he already got his dose of ceftriaxone this morning, so if he is doing well off Vancomycin, I think we could start Keflex tomorrow morning and he could discharge home. I spoke with Vinay from [facility] to update him. I I also explained this to Gabriel and his they were in agreement. Specimen: [id number] Collected: 06/05/23 Received: 06/05/23-1313 Source: Fing Rt Ri Sp Descrip: Sub Dr: Bhupendra Birmingham M.D. Other Dr: Procedure Result Site Gram Stain* Final ML Result NO ORGANISM SEEN Aerobic Culture* Preliminary ML SMALL AMOUNT OF BACILLUS NO FURTHER WORKUP SMALL AMOUNT OF GROUP A STREP, SENT TO [facility] FOR SENSITIVITY Anaerobic Culture* Final ML No growth. Status: Acute (2) Headache: Problem details: Has h/o migraine headache. ibuprofen p.r.n.. Status: Acute (3) Migraine with aura: Status: Acute (4) Constipation: Problem details: Continue senna while on oxycodone Status: Resolved (5) Shortness of breath: Problem details: - monitor on cardiac telemetry overnight. Initial troponin is unremarkable, recheck in 90 minutes. EKG is as above, T-wave abnormality in the anterior leads. Recheck EKG with the next troponin. Patient is not hypoxic, has no chest pain, has no tachycardia or tachypnea. He has no leg swelling or pain and he had a right upper extremity ultrasound for DVT 2 days ago which was unremarkable. I think this is not likely a PE. And I do not think he needs a CTA at this time. Monitor for any worsening or at any new symptoms. Differential is most likely atelectasis, possible anxiety, verses other. Status: Acute Subjective Time Seen by Provider: 07:54 Date Seen: 06/08/23 Interval history: Gabriel says his AMIN went away after about 4 hours yesterday. Unfortunately he has 1 again this morning. He is not nauseous today. He is overall feeling better and has a little bit less pain in his arm today. He told me this morning that he has been feeling short of breath since yesterday. He describes it as feeling that he can only get in about 3/4 of his breath. He says it is a little bit better today, but not completely gone. Yesterday it felt like someone was pushing on his chest. The pressure that he felt yesterday is gone today. He walked 6 times yesterday. He is not having any lower extremity pain or swelling. He did not tell anybody about his shortness of breath yesterday; this is the 1st he has mentioned it to anyone. His , Marisa, is with him in the room this morning. He had a BM yesterday. Exam Narrative: Exam Narrative: General: No acute distress. Awake, alert, oriented. No pallor. No jaundice. Oropharynx: Clear. Mucous membranes moist. Cardiovascular: Regular rate and rhythm. No murmurs, gallops, or rubs. Respiratory: Clear to auscultation bilaterally. No wheezes or crackles. Abdomen: Bowel sounds present. Soft, nondistended, nontender. Extremities: Right forearm is in a bandage that is clean , dry, and intact. There is no induration or erythema seen within the lines drawn 2 days ago. No lower extremity edema or tenderness. Const: Vital Signs, click to edit/add: Vital Signs - 24 hr 06/07/23 11:00 06/07/23 15:00 06/07/23 15:00 Temperature Pulse Rate Pulse Rate [Left P ulse Oximeter] 77 77 Respiratory Rate 20 20 Blood Pressure [Le ft Arm] 147/93 H Pulse Oximetry 97 97 Oxygen Delivery Me thod Room Air 06/07/23 15:00 06/07/23 19:41 06/07/23 20:46 Temperature 98.6 F 98 F 98 F Pulse Rate Pulse Rate [Left P ulse Oximeter] 86 83 Respiratory Rate 20 16 Blood Pressure [Le ft Arm] 141/86 H 131/71 Pulse Oximetry 96 95 Oxygen Delivery Me thod Room Air Room Air 06/07/23 23:25 11/13/23 23:25 06/07/23 23:32 Temperature 97.8 F Pulse Rate Pulse Rate [Left P ulse Oximeter] 83 58 L Respiratory Rate 16 16 Blood Pressure [Le ft Arm] 107/72 Pulse Oximetry 95 96 Oxygen Delivery Me thod Room Air 06/07/23 23:33 06/08/23 02:36 06/08/23 07:00 Temperature 97.8 F 97.8 F Pulse Rate Pulse Rate [Left P ulse Oximeter] 59 L Respiratory Rate 16 Blood Pressure [Le ft Arm] 113/79 Pulse Oximetry 96 97 Oxygen Delivery Me thod Room Air 06/08/23 07:00 06/08/23 08:39 Temperature 97.6 F Pulse Rate 70 Pulse Rate [Left P ulse Oximeter] 77 Respiratory Rate 20 Blood Pressure [Le ft Arm] 131/88 Pulse Oximetry 97 Oxygen Delivery Me thod Room Air Labs Labs: Laboratory Results - last 24 hr 06/08/23 09:07 WBC 5.47 RBC 4.32 Hgb 13.0 L Hct 38.9 MCV 90 MCH 30 MCHC 33 RDW Coeff of Tena 12.0 Plt Count 295 Neut % (Auto) 60.5 Lymph % (Auto) 21.8 Linn % (Auto) 11.0 Eos % (Auto) 5.1 Baso % (Auto) 1.1 Neut # (Auto) 3.31 Lymph # (Auto) 1.19 Linn # (Auto) 0.60 Eos # (Auto) 0.28 Baso # (Auto) 0.06 Abs Immat Gran (auto) 0.03 Imm/Tot Granulo (auto) 0.5 Sodium 140 Potassium 3.9 Chloride 109 Carbon Dioxide 24 Anion Gap 7 BUN 11 Creatinine 0.9 Estimated Creat Clear 122.01 Estimated GFR 114 Glucose 113 Calcium 8.9 Troponin I < 0.01 L 06/08/2023 EKG: Sinus bradycardia with sinus arrhythmia, 59 beats per minute, T-wave abnormality, consider anterior ischemia. Ordering Physician: Scarlet Jones M.D. Date of Service: 06/08/23 Procedure(s): XR chest 2V Accession Number(s): [id number] cc: LIONEL MONTANA, Yvette Cooley; Scarlet Jones M.D.~ For Patients: As a result of the 21st Century Cures Act, medical imaging exams and procedure reports are released immediately into your electronic medical record. You may view this report before your referring provider. If you have questions, please contact your health care provider. INDICATION: Dyspnea COMPARISON: None TECHNIQUE: PA and lateral views of the chest were acquired FINDINGS: TUBES AND LINES: None. HEART AND MEDIASTINUM: The heart size is normal. The mediastinal contour appears normal for patient age. LUNGS AND PLEURAL SPACES: The lungs appear normal.The pleural spaces are unremarkable. OSSEOUS STRUCTURES: Age-appropriate appearance. No acute focal finding. IMPRESSION: No evidence of active pulmonary disease. Dictated by Reed Concepcion MD @ 06/08/2023 8:54:48 AM (Electronically Signed)
[2023-06-08 12:28] LABS: Troponin I* < 0.01 ng/mL (0.01-0.04)
--- NOTE | 2023-06-08 18:07 | PC.NURSE ---
End of Shift Note: Patient has done well today. He is ambulating in his room and out in the hallways. Has only minimally complained of pain which is being controlled with ibuprofen. Did get fitted for a brace per instructions from Vinay CHAPIN. No complaints of nausea. Will continue to monitor.
[2023-06-09 03:00] VITALS: BP 126/88; PULSE 68; RESP 18; TEMP 36.6; O2SAT 95
--- NOTE | 2023-06-09 06:13 | PC.NURSE ---
Patient pleasant, alert and oriented. Ambulates independently. Tolerated regular diet. Right finger in brace and left open to air. Reported having pain that was ?not more than usual.? Decline PRN pain medications when offered. Temp 99.0 earlier this shift. Recheck Temp 97.6. ?
[2023-06-09 07:00] VITALS: BP 145/97; PULSE 63; PULSE 79; RESP 18; TEMP 36.6; O2SAT 97
[2023-06-09] MEDS: IBUPROFEN 600 MG TABLET PO (08:20)
[2023-06-09] MEDS: cephALEXin 500 MG CAPSULE PO (08:21)
--- NOTE | 2023-06-09 08:35 | P.ORPN_ITS ---
Subjective Subjective Date Seen: 06/08/23 Principal diagnosis: Day 3 s/p rt ring finger pyogenic flexor tenosynovitis incision & drainage Interval history: Patient reports doing okay. Somewhat improved pain along this right ring finger. Pain more focused at the distal tip with some associated numbness. Also notes discomfort middle phalanx, mild-moderate. Stiff digit but less swelling than previous day per patient and patient's father. Patient's father has a picture of the previous day. No acute events over night. Pain managed with scheduled and PRN medications, ice. At this point, it appears that Keflex oral will be sufficient to manage the infection thus IV ankle be discontinued. DVT prophylaxis: walking. Denies fevers, chills, aches, N/V, CP, SOB/SAMSON, or lightheadedness. Per staff, he was reporting some discomfort. Reported chest x-ray negative for acute pathology or concerns, and a negative troponin, and a negative ultrasound of the right upper extremity from admission day. Has been encouraged to perform more incentive spirometry. Ortho Exam Narrative Exam Narrative: Right hand, focused ring finger: Volar plaster splint with extension along the MCP and PIP of the ulnar [address], wrapped with Roberto wrap Swelling noted along the ring finger, moderate, more notable distal. There is generalized erythema to the digit through the MCP region, not to include the dorsal palmar hand. No gross deformity Passive extension of the ring digit does not result in significant pain, able to achieve +5 extension at the MCP joint with 0? PIP and DIP. The fusiform swelling has improved from previous day as skin wrinkling is noted flexor region of the ring digit. The digit rests slightly flexed, and no significant tende rness along the tendon sheath Mild discomfort to palpation MCP region of the ring and index Sutures intact, no obvious drainage. No pus, no foul odor Dorsum of his hand is moderately swollen 2+ radial pulse, pink, warm, appropriate capillary refill digits; intact dermatomes and myotomes distally (radial, ulnar, and median nerve distributions) Const Vital Signs, click to edit/add: Vital Signs - 24 hr 06/08/23 08:39 06/08/23 11:00 06/08/23 15:00 Temperature 97.8 F Pulse Rate 70 Pulse Rate [Left Pulse Oximeter] 55 L 55 L Respiratory Rate 20 20 Blood Pressure [Left Arm] 140/92 H Pulse Oximetry 95 Oxygen Delivery Method Room Air 06/08/23 15:00 06/08/23 15:00 06/08/23 15:00 Temperature 97.6 F Pulse Rate 69 Pulse Rate [Left Pulse Oximeter] 67 Respiratory Rate 20 Blood Pressure [Left Arm] 144/94 H Pulse Oximetry 95 95 Oxygen Delivery Method Room Air 06/08/23 20:20 06/08/23 23:00 06/08/23 23:00 Temperature 99.0 F Pulse Rate 56 L Pulse Rate [Left Pulse Oximeter] 66 Respiratory Rate 18 Blood Pressure [Left Arm] 136/87 Pulse Oximetry 94 94 Oxygen Delivery Method Room Air 06/08/23 23:55 06/09/23 03:00 Temperature 97.6 F 97.8 F Pulse Rate Pulse Rate [Left Pulse Oximeter] 56 L 68 Respiratory Rate 18 18 Blood Pressure [Left Arm] 109/68 126/88 Pulse Oximetry 94 95 Oxygen Delivery Method Room Air Room Air Assessment and Plan Assessment and plan (1) Suppurative tenosynovitis of flexor tendon of right hand: Problem details: s/p 3 rt ring finger pyogenic flexor tenosynovitis incision & drainage 06/05/23 - Interval improvement. - I spoke with Dr. Shelton from [facility] today regarding the group a strep that grew out in wound cultures, noting that blood cultures were both negative so far. He agreed that we could. Vancomycin and transition over to Ancef for 24 hours and then do Keflex as an outpatient if he does well tomorrow. I am stopping vancomycin today. he already got his dose of ceftriaxone this morning, so if he is doing well off Vancomycin, I think we could start Keflex tomorrow morning and he could discharge home. I spoke with Vinay from [facility] to update him. I also explained this to Gabriel and his they were in agreement. Specimen: [id number] Collected: 06/05/23-1057 Received: 06/05/23-1313 Source: Fing Rt Ri Sp Descrip: Sub Dr: Bhupendra Birmingham M.D. Other Dr: Procedure Result Site Gram Stain* Final ML Result NO ORGANISM SEEN Aerobic Culture* Preliminary ML SMALL AMOUNT OF BACILLUS NO FURTHER WORKUP SMALL AMOUNT OF GROUP A STREP, SENT TO [facility] FOR [facility]IT[facility] Anaerobic Culture* Final ML No growth. Status: Acute Plan - Continue Keflex for antibiotic coverage, discontinue vancomycin - transition to an ulnar gutter removal brace with Alumafoam to cover the ring digit (he may wear these as a pair, or individually p.r.n.) - Social work consult for discharge planning - Prescribed analgesics as needed - Anticipation is for discharge to home tomorrow, 06/09/2023 if the patient remains medically stable, pain is controlled, and Keflex coverage deems reasonable to continue treating the infection without IV coverage
--- NOTE | 2023-06-09 09:18 | PM.DS1 ---
DS: Providers Provider Time Seen by Provider: 07:45 Date Seen: 06/09/23 Date of admission: 06/05/23 12:54 Primary care physician: Yvette Cooley, LIONEL, LOOPING MACHINE OPERATOR Admitting Clinician: Scarlet Jones MD Attending Physician on discharge: Bhupendra Birmingham MD Date of Discharge: 06/09/23 DS: Diagnosis Discharge Diagnosis (1) Suppurative tenosynovitis of flexor tendon of right hand: Status: Acute Problem details: s/p 3 rt ring finger pyogenic flexor tenosynovitis incision & drainage 06/05/23 - Improving now on cephalosporin only. ID and sensitivities below. - 06/08/[address] Shelton from [facility] today regarding the group a strep that grew out in wound cultures, noting that blood cultures were both negative so far. He agreed that we could. Vancomycin and transition over to Ancef for 24 hours and then do Keflex as an outpatient if he does well tomorrow. I am stopping vancomycin today. he already got his dose of ceftriaxone this morning, so if he is doing well off Vancomycin, I think we could start Keflex tomorrow morning and he could discharge home. I spoke with Vinay from [facility] to update him. I also explained this to Gabriel and his they were in agreement. - 06/09 transition to oral keflex today with discharge home. Specimen: [id number] Collected: 06/05/23-1057 Received: 06/05/23-1314 Source: Fing Rt Ri Sp Descrip: Sub Dr: Bhupendra Birmingham M.D. Other Dr: Procedure Result Site Gram Stain* Final ML Result NO ORGANISM SEEN Aerobic Culture* Preliminary ML SMALL AMOUNT OF BACILLUS NO FURTHER WORKUP SMALL AMOUNT OF GROUP A STREP, SENT TO [facility] FOR SENSITIVITY Anaerobic Culture* Final ML No growth. (2) Shortness of breath: Status: Resolved Problem details: - monitored on cardiac telemetry overnight. Serial troponins were unremarkable. Serial EKGs unchanged: T-wave abnormality in the anterior leads. Patient was not hypoxic, has no chest pain, has no tachycardia or tachypnea. He had no leg swelling or pain and he had a right upper extremity ultrasound for DVT 2 days ago which was unremarkable. I think this is not likely a PE. And I do not think he needs a CTA at this time. Monitor for any worsening or at any new symptoms. Differential is most likely atelectasis, possible anxiety, verses other. SOB resolved with IS. (3) Constipation: Status: Resolved Problem details: Continue senna while on oxycodone (4) Headache: Status: Resolved Problem details: Has h/o migraine headache. ibuprofen p.r.n.. (5) Eczema: Status: Chronic (6) Migraine with aura: Status: Chronic DS: Summary Hospital Course Hospital Course: 37-year-old male history of eczema who had a patch of it over his right 4th finger and developed pain, swelling over his right 4th finger, fever, nausea, and vomiting rather suddenly. Upon presentation he was found to have tenosynovitis of the right 4th finger and went to the operating room for incision and drainage on 06/05/2023. He was started on ceftriaxone and vancomycin also on that day. Blood cultures from then have been negative and wound culture from the OR is as above. For group A strep he is discharged on oral Keflex. He will follow-up with Dr. Kirkland this Wednesday. His hospitalization he had a headache, constipation, and shortness of breath with chest tightness, please see above for further details. Those have resolved. Time Spent with Patient Time attestation: Total time spent providing and/or coordinating discharge services: Exam Narrative: Exam Narrative: General: No acute distress. Awake, alert, oriented. No pallor. No jaundice. Oropharynx: Clear. Mucous membranes moist. Cardiovascular: Regular rate and rhythm. No murmurs, gallops, or rubs. Respiratory: Clear to auscultation bilaterally. No wheezes or crackles. Extremities: Erythema and induration over right forearm have resolved. Some mild induration remains anteriorly between the sutures, but it is mostly ecchymotic and less edematous today. Const: Vital Signs, click to edit/add: Vital Signs - 24 hr 06/08/23 11:00 06/08/23 15:00 06/08/23 15:00 Temperature 97.8 F Pulse Rate 69 Pulse Rate [Left P ulse Oximeter] 55 L 55 L Respiratory Rate 20 20 Blood Pressure [Le ft Arm] 140/92 H Pulse Oximetry 95 Oxygen Delivery Me thod Room Air 06/08/23 15:00 06/08/23 15:00 06/08/23 20:20 Temperature 97.6 F 99.0 F Pulse Rate Pulse Rate [Left P ulse Oximeter] 67 66 Respiratory Rate 20 18 Blood Pressure [Le ft Arm] 144/94 H 136/87 Pulse Oximetry 95 95 94 Oxygen Delivery Me thod Room Air Room Air 06/08/23 23:00 06/08/23 23:00 06/08/23 23:55 Temperature 97.6 F Pulse Rate 56 L Pulse Rate [Left P ulse Oximeter] 56 L Respiratory Rate 18 Blood Pressure [Le ft Arm] 109/68 Pulse Oximetry 94 94 Oxygen Delivery Me thod Room Air 06/09/23 03:00 06/09/23 07:00 06/09/23 07:00 Temperature 97.8 F Pulse Rate 63 Pulse Rate [Left P ulse Oximeter] 68 Respiratory Rate 18 Blood Pressure [Le ft Arm] 126/88 Pulse Oximetry 95 97 Oxygen Delivery Me thod Room Air 06/09/23 07:00 Temperature 97.8 F Pulse Rate Pulse Rate [Left P ulse Oximeter] 79 Respiratory Rate 18 Blood Pressure [Le ft Arm] 145/97 H Pulse Oximetry 97 Oxygen Delivery Me thod Room Air DS: Data Data Completed and Pending Completed studies during hospitalization: 06/08/2023 EKG: Sinus bradycardia with sinus arrhythmia, 59 beats per minute, T-wave abnormality, consider anterior ischemia. Repeat EKG 2 hours later was unchanged. Ordering Physician: Scarlet Jones M.D. Date of Service: 06/06/23 Procedure(s): US venous UE RT Accession Number(s): [id number] cc: LIONEL MONTANA, Yvette Cooley; Scarlet Jones M.D.~ For Patients: As a result of the Century Cures Act, medical imaging exams and procedure reports are released immediately into your electronic medical record. You may view this report before your referring provider. If you have questions, please contact your health care provider. INDICATION: Swelling and redness. FINDINGS: Right jugular vein patent and compressible with normal color and spectral Doppler appearance. No filling defect in the right innominate or subclavian vein with normal color and spectral Doppler appearance. Axillary, brachial, basilic and cephalic veins patent and compressible. IMPRESSION: No right upper extremity DVT. Dictated by Rohith Whittaker MD @ 06/06/2023 12:21:16 PM (Electronically Signed) Ordering Physician: Scarlet Jones M.D. Date of Service: 06/08/23 Procedure(s): XR chest 2V Accession Number(s): [id number] cc: Yvette FLOWERS CNP; Scarlet Jones M.D.~ For Patients: As a result of the Cures Act, medical imaging exams and procedure reports are released immediately into your electronic medical record. You may view this report before your referring provider. If you have questions, please contact your health care provider. INDICATION: Dyspnea COMPARISON: None TECHNIQUE: PA and lateral views of the chest were acquired FINDINGS: TUBES AND LINES: None. HEART AND MEDIASTINUM: The heart size is normal. The mediastinal contour appears normal for patient age. LUNGS AND PLEURAL SPACES: The lungs appear normal.The pleural spaces are unremarkable. OSSEOUS STRUCTURES: Age-appropriate appearance. No acute focal finding. IMPRESSION: No evidence of active pulmonary disease. Dictated by Reed Concepcion MD @ 06/08/2023 8:54:48 AM (Electronically Signed) Labs on day of discharge: Labs from last 24 hours 06/08/23 06/08/23 11:47 09:07 Sodium 140 Potassium 3.9 Chloride 109 Carbon Dioxide 24 Anion Gap 7 BUN 11 Creatinine 0.9 Estimated Creat Clear 122.01 Estimated GFR 114 Glucose 113 Calcium 8.9 Troponin I < 0.01 L < 0.01 L Preliminary micro results at discharge 06/05/23 07:03 Blood Culture - Preliminary Blood NO GROWTH AFTER 96 HOURS 06/05/23 06:28 Blood Culture - Preliminary Blood NO GROWTH AFTER 96 HOURS 06/05/23 10:58 Aerobic Culture - Preliminary Finger Right Ring Discharge Plan Discharge Disposition: Home, Self-Care Date of Admission: 06/05/23 12:54 Attending Provider on Discharge: Scarlet Jones Primary Care Provider: Yvette oColey Condition: Improved Anticipated Discharge Date/Time: 06/09/23 09:28 Discharge Medications: New cephalexin 500 mg Capsule 500 mg PO TID 10 Days Qty: 30 0RF No Action No Known Home Medications Discharge Orders: Discharge Order (Routine); Ordered 06/09/23 Ordered By: Scarlet Jones Consulting provider completed their portion of the discharge: No Patient Education: Deep Sedation (DC), Incision and Drainage (DC) Additional Instructions: Vinnie Wednesday Activity Level: No Restrictions Discharge Diet: Regular Follow Up Appointments: Yvette Cooley, TACK WELDER, LOOPING MACHINE OPERATOR [Primary Care Provider] - Forms: [employer] Info Instructions
--- NOTE | 2023-06-09 09:33 | P.ORPN_ITS ---
Subjective Subjective Date Seen: 06/09/23 Principal diagnosis: Day 4 s/p rt ring finger pyogenic flexor tenosynovitis incision & drainage Interval history: Patient reports doing well. Improved discomfort, slightly improved motion. Having the splint off more often. No acute events over night. Pain managed with scheduled and PRN medications, ice. Appetite is good. DVT prophylaxis: walking. Denies fevers, chills, aches, N/V, CP, SOB/SAMSON, or lightheadedness. Ortho Exam Narrative Exam Narrative: Right hand, focused ring finger: No splint on at this point. Swelling noted along the ring finger, mild-moderate, improved distally. There is generalized erythema to the digit through the MCP region with subsequent superficial skin sloughing along the ring digit No gross deformity Passive extension of the ring digit does not result in significant pain, able to achieve +10 extension at the MCP joint with 0? PIP and DIP. Active PIP flexion to approximately 10?, DIP 2? The fusiform swelling has continued to improve from previous day with notable skin wrinkling along the flexor digit. No resting in flexion. No significant tenderness along the tendon sheath Mild discomfort to palpation MCP region index; otherwise no discomfort along the palm Sutures intact, no obvious drainage. No pus, no foul odor Dorsum of his hand is mild-moderately swollen 2+ radial pulse, pink, warm, appropriate capillary refill digits; intact dermatomes and myotomes distally (radial, ulnar, and median nerve distributions) Const Vital Signs, click to edit/add: Vital Signs - 24 hr 06/08/23 11:00 06/08/23 15:00 06/08/23 15:00 Temperature 97.8 F Pulse Rate 69 Pulse Rate [Left Pulse Oximeter] 55 L 55 L Respiratory Rate 20 20 Blood Pressure [Left Arm] 140/92 H Pulse Oximetry 95 Oxygen Delivery Method Room Air 06/08/23 15:00 06/08/23 15:00 06/08/23 20:20 Temperature 97.6 F 99.0 F Pulse Rate Pulse Rate [Left Pulse Oximeter] 67 66 Respiratory Rate 20 18 Blood Pressure [Left Arm] 144/94 H 136/87 Pulse Oximetry 95 95 94 Oxygen Delivery Method Room Air Room Air 06/08/23 23:00 06/08/23 23:00 06/08/23 23:55 Temperature 97.6 F Pulse Rate 56 L Pulse Rate [Left Pulse Oximeter] 56 L Respiratory Rate 18 Blood Pressure [Left Arm] 109/68 Pulse Oximetry 94 94 Oxygen Delivery Method Room Air 06/09/23 03:00 06/09/23 07:00 06/09/23 07:00 Temperature 97.8 F Pulse Rate 63 Pulse Rate [Left Pulse Oximeter] 68 Respiratory Rate 18 Blood Pressure [Left Arm] 126/88 Pulse Oximetry 95 97 Oxygen Delivery Method Room Air 06/09/23 07:00 Temperature 97.8 F Pulse Rate Pulse Rate [Left Pulse Oximeter] 79 Respiratory Rate 18 Blood Pressure [Left Arm] 145/97 H Pulse Oximetry 97 Oxygen Delivery Method Room Air Assessment and Plan Assessment and plan (1) Suppurative tenosynovitis of flexor tendon of right hand: Problem details: s/p 4 rt ring finger pyogenic flexor tenosynovitis incision & drainage 06/05/23 - Improving now on cephalosporin only. ID and sensitivities below. - 06/08/[address] Shelton from [facility] today regarding the group a strep that grew out in wound cultures, noting that blood cultures were both negative so far. He agreed that we could. Vancomycin and transition over to Ancef for 24 hours and then do Keflex as an outpatient if he does well tomorrow. I am stopping vancomycin today. he already got his dose of ceftriaxone this morning, so if he is doing well off Vancomycin, I think we could start Keflex tomorrow morning and he could discharge home. I spoke with Vinay from [facility] to update him. I also explained this to Gabriel and his they were in agreement. - 06/09 transition to oral keflex today with discharge home. Specimen: [id number] RES Collected: 06/05/23 Received: 06/05/23-1313 Source: Fing Rt Ri Sp Descrip: Sub Dr: Bhupendra Birmingham M.D. Other Dr: Procedure Result Site Gram Stain* Final ML Result NO ORGANISM SEEN Aerobic Culture* Preliminary ML SMALL AMOUNT OF BACILLUS NO FURTHER WORKUP SMALL AMOUNT OF GROUP A STREP, SENT TO [facility] FOR SENSITIVITY Anaerobic Culture* Final ML No growth. Status: Acute Plan - Continue Keflex for antibiotic coverage, discontinue vancomycin - ulnar gutter removal brace PRN - this was adjusted to help better fit. Alumafoam to cover the ring digit (he may wear these as a pair, or individually p.r.n.) - continue digit motion as tolerated - Prescribed analgesics as needed - Anticipation is for discharge to home today with 06/09/2023 if the patient remains medically stable, pain is controlled, and Keflex coverage deems reasonable to continue treating the infection without IV coverage - he will follow-up this Wednesday06/11/[address] Birmingham clinical recheck.
--- NOTE | 2023-06-09 11:02 | PC.NURSE ---
PATIENT ALERT AND ORIENTED, UP IND IN ROOM, WEARING BRACE TO RIGHT HAND PRN, SITE OPEN TO AIR, RATING PAIN 2-4/10 BEING MANAGED WITH PRN MOTRIN, IV REMOVED CATHETER INTACT, PATIENT DISCHARGED HOME WITH , AND PATIENT VERBALIZED UNDERSTANDING OF DISCHARGE INFORMATION AND HAD NO FURTHER QUESTIONS AT THIS TIME.
== END 2023-06-09 10:50 | disposition home or self-care (01) | DRG 558 ==
LOC: ED 09:33 → MEDSURG 10:14
PROVIDERS: Family Medicine; Physician Assistant Surgical; Admitting Provider Orthopaedic Surgery Sports Medicine; Emergency Provider Family Medicine; PCP Nurse Practitioner Family; Visit Provider Orthopaedic Surgery Sports Medicine
PROC: 0HQQXZZ Repair Finger Nail, External Approach (ICD-10-PCS; CPT 11760; principal; 2023-06-05 10:15)
DX: M65.141 Other infective (teno)synovitis, right hand (principal); B95.0 Streptococcus, group A, as the cause of diseases classified elsewhere; L30.9 Dermatitis, unspecified; R06.02 Shortness of breath; R00.1 Bradycardia, unspecified; R51.9 Headache, unspecified; R94.31 Abnormal electrocardiogram [ECG] [EKG]; K59.00 Constipation, unspecified; G43.E09 Chronic migraine with aura, not intractable, without status migrainosus
CPT/HCPCS: 01810; 36415; 71046; 80048; 83036; 83605; 84484; 85025; 86140; 87040; 87070; 87075; 87186; 87205; 93005; 93971; 99140; 99284; A4580; A9270; J0330; J0665; J0696; J1170; J2060; J2405; J2550; J2704; J2765; J3010; J3370; J7030; J7050; J7120